=== PATIENT | female | born 1965 | race Caucasian/White ===

== ENCOUNTER → 2021-08-14 17:38 | Outpatient (CLI) | payer BC, SELFPAY ==
--- NOTE | ~2021-08-14 | DEXA_ITS ---
Bone Density Report Name: Carmen Kiser Age: 56 Sex: Female Ethnicity: White Date of : 1965 Indication: postmenopausal; screening for osteoporosis; prior fracture; Referring Provider: [place], DARRICK Kaufman Study: Bone densitometry was performed. Exam Date: August 14, 2021 Accession number: [id number] Bone Density: Region BMD T-score Z-score Classification AP Spine (L1-L4) 1.008 -0.4 0.7 Normal Femoral Neck (Left) 0.583 -2.4 -1.3 Osteopenia Total Hip (Left) 0.688 -2.1 -1.4 Osteopenia Femoral Neck (Right) 0.666 -1.6 -0.6 Osteopenia Total Hip (Right) 0.729 -1.7 -1.1 Osteopenia Total Hip Mean 0.709 -1.9 -1.3 Osteopenia World Health Organization criteria for BMD impression classify patients as: Normal (T-score at or above -1.0), Osteopenia (T-score between -1.0 and -2.5), or Osteoporosis (T-score at or below -2.5). 10-year Fracture Risk(1): Major Osteoporotic Fracture 14% Hip Fracture 2.7% Reported Risk Factors: [place] (), Neck BMD=0.583, BMI=20.9, previous fracture (1) FRAX(R) Version 3.08. Fracture probability calculated for an untreated patient. Fracture probability may be lower if the patient has received treatment. Clinical Information Provided by Patient: Has had a low trauma fracture Patient maximum height was 68 Menopause Age: 44 No regular weight bearing exercise Drinks caffeinated beverages Onset of menses at age 15 Number of children 3 Impression: The patient has low bone mass, based on the Left Femoral Neck T-score. The patient has an estimated ten-year risk of hip fracture of 2.7% and an estimated ten-year risk of major fracture of 14%, based on the WHO FRAX algorithm. The patient has risk factors, including: previous fracture. Discussion: BONE DENSITY IS LOW AT ONE OR MORE SKELETAL SITES. This patient's lowest T-score is low at one or more skeletal sites. It meets the World Health Organization's (WHO) criteria for ?low bone mass? (T-score between -1.0 and -2.5). The patient's 10-year risk of fracture as calculated by FRAX is less than the threshold where pharmacological therapy is recommended by the National Osteoporosis Foundation (NOF). However, all treatment decisions require clinical judgment and consideration of individual patient factors, including patient preferences, comorbidities, previous drug use, risk factors not captured in the FRAX model (e.g., frailty, falls, vitamin D deficiency, increased bone turnover, interval significant decline in bone density) and possible under or overestimation of fracture risk by FRAX. The patient should follow a healthful lifestyle (good nutrition with adequate calcium and vitamin D, and appropriate weight-bearing exercise). Follow-Up: Consider repeating this study in 2 to 3 years to reassess this patient's status, or pawel
--- NOTE | ~2021-08-14 | MM_ITS ---
EXAMINATION: MM screening cindy BI w osito HISTORY: Screening mammogram TECHNIQUE: Craniocaudal and mediolateral oblique 3-D tomosynthesis images were obtained and synthetic 2-D images were generated. CAD analysis was submitted and interpreted. COMPARISON: 12/28/2018, 12/15/2017, 01/02/2016 bilateral screening mammogram examinations BREAST PARENCHYMAL COMPOSITION: There are scattered areas of fibroglandular density. FINDINGS: There is no evidence of suspicious mass, calcification, or architectural distortion to sugg est malignancy in either breast. There has been no suspicious interval change. IMPRESSION: 1. No mammographic evidence of malignancy. 2. Recommend routine screening mammography in one year. BI-RADS Category 1: Negative Reviewed, dictated and finalized at location A.
== END ==
PROVIDERS: PCP Internal Medicine; Visit Provider Internal Medicine
DX: Z12.31 Encounter for screening mammogram for malignant neoplasm of breast (principal); Z78.0 Asymptomatic menopausal state; M85.852 Other specified disorders of bone density and structure, left thigh; M85.851 Other specified disorders of bone density and structure, right thigh
CPT/HCPCS: 77063; 77067; 77080

== ENCOUNTER 2023-12-30 09:59 | Outpatient (CLI) | payer BC, SELFPAY ==
--- NOTE | ~2023-12-30 | MM_ITS ---
EXAMINATION: MM screening cindy BI w osito HISTORY: Screening mammogram TECHNIQUE: Craniocaudal and mediolateral oblique 3-D tomosynthesis images were obtained and synthetic 2-D images were generated. CAD analysis was submitted and interpreted. COMPARISON: 08/14/2021, 12/28/2018, 12/07/2017 bilateral screening mammogram examinations BREAST PARENCHYMAL COMPOSITION: There are scattered areas of fibroglandular density. FINDINGS: There is no evidence of suspicious mass, calcification, or architectural distortion to sugg est malignancy in either breast. There has been no suspicious interval change. IMPRESSION: 1. No mammographic evidence of malignancy. 2. Recommend routine screening mammography in one year. BI-RADS Category 1: Negative Reviewed, dictated and finalized at location A.
== END 2023-12-30 10:00 ==
PROVIDERS: PCP Nurse Practitioner Family; Visit Provider Nurse Practitioner Family
DX: Z12.31 Encounter for screening mammogram for malignant neoplasm of breast (principal)
CPT/HCPCS: 77063; 77067

== ENCOUNTER 2025-07-31 18:55 | Emergency (ER) | payer BC, SELFPAY ==
[2025-07-31 19:06] VITALS: BP 159/82; PULSE 84; RESP 20; TEMP 36.4; O2SAT 99
--- OUTSIDE RECORDS SUMMARY | 2025-07-31 20:34 | XMS_ITS | Data Portability ---
Author Organization [place] [facility], Main Office Address [address] [place] [address] Care Team Providers Care Sprinkling System Irrigator Name Role Phone PAUL PEREZ Primary Care Provider [phone] Assessment Encounter Date Assessment Date Assessment LastModified by Organization Details LastModified Time 12/17/2022 12/17/2022 Cscope- hx polyps/family hx ca- ordered- Sev[place] WWE- referred to [facility]- ordered DEXA- 07/2021- osteopenia Call office if worse, ER if life-threatening illness RTC in 1 year and p.r.n. (unless we start cholesterol med, then will see in 6 months) She voices understanding of plan and agrees [email or web address] Not available 12/17/2022 10:53:40 Plan of Treatment Reminders Order Date Submit Date Provider Last Modified By Organization Details Last Modified Time Details Appointments None recorded. Lab vitamin D, 25-hydroxy, total, serum 2022 023 SHAHEEN Sorensen, [address], [address], [place], [address], 3 12:42:42 HbA1c (hemoglobin A1c), blood 2022 023 SHAHEEN Sorensen, [address], [address], [place], [address], 3 12:42:42 lipid panel, serum 2022 023 SHAHEEN Sorensen, [address], [address], [place], [address], 3 12:42:42 lipoprotein (A), serum - test code [id number] [address], [address]22 [address], [address], [place], [address], 3 10:26:39 apolipoprot ein B (apo B), serum [address], 2022 [address], [address], [place], [address], 3 10:26:39 TSH, serum, reflex free T4 2022 023 [facility], [address], [address], [place], [address], 3 12:42:42 CBC w/ auto diff 2022 023 [facility], [address], [address], [place], [address], 3 12:42:42 CMP, serum or plasma 2022 023 [facility], [address], [address], [place], [address], 3 12:42:42 Referral gynecologis t referral - needs WWE 2022 023 [email or web address] Irma Jarvis, [address], [address], [place], [address], Ph 251 [id number] 4 13:04:57 Procedures colonoscopy screening (PROC) - family hx colon ca; personal hx polyps 2022 023 [email or web address] 3 Quinton Sevilla MD, [address], [address], [place], [address], 3 10:25:48 Surgeries None recorded. Imaging MAMMO, screening, bilateral 2022 023 [facility], [address], [address], [place], [address], 4 13:04:46 Medication Orders None recorded. Patient TargetsNo targets recorded. Patient Instructions Encounter Date Encounter Id Patient Instructions Last Modified By Organization Details Last Modified Time 12/17/2022 [id number] risk assessment* [email or web address] Not availabl e 12/17/2022 10:55:14 INFLUENZA VACCIN E Patient will get at local pharmacy/health department TD/TDAP Patient will get at local pharmacy/health department PNEUMONIA VACCINE Recommended at age 66 SHINGLES Patient will get at local pharmacy/health department MAMMOGRAM: Last Mammogram _ Ordered DEXA SCAN No screening necessary patient is up to date CERVICAL SCREENING/PELVIC EXAMINATION Ordered COLORECTAL SCREENING: Last Colonoscopy Ordered DEPRESSION SCREENING Negative BMI Appropriate NUTRITION Continue healthy eating & exercise PHYSICAL ACTIVITY Need more exercise/physical activity minimum of 30-40 minutes of activity that causes mild breathlessness/day VISION Recommended today ALCOHOL USE No alcohol use TOBACCO USE non smoker LUNG CANCER SCREENING Non Smoker-not indicated SEXUALLY ACTIVE Yes, Patient is in monogamous relationship HEPATITIS C SCREENING Not indicated GLUCOSE SCREENING Ordered LIPID SCREENING Diagnosis of Hyperlipidemia [email or web address] Not available 12/17/2022 10:56:35 Reason for Referral Manager Site Referral for Re ferral needed needs WWE Referring Physician: Zandra Harris, Internal Medicine, Encounter Date: 12/17/2022 Results Created Date Observation Date Name Description Value Unit Range Abnormal Flag Note LastModifiedBy Organization Detail LastModifiedTime 09/19/20 21 09/19/2021 SARS- COV-2 RNA(C OVID1 9),RT -PCR sars-cov-2 RNA(covid19) ,RT-PCR negati ve This test has been autho rized by the FDA under an Emerg ency Use Autho rizat ion (EUA) for use by autho rized labor atori es. Negat marcos resul ts do not precl ude SARS- CoV-2 and shoul d not be used as the sole basis for treat ment or other patie nt manag ement decis ions. Test resul ts shoul d be corre lated with the clini belen histo ry, epide miolo gical data, and other data avail able to the clini tatyana evalu ating the patie nt. Casper gibbs the Fact Sheet s for healt h care provi ders and patie nts at the [facility] lorri: https ://ww w.NXVISION .gov/ media /1363 12/do wnloa d https ://ww w.fda .gov/ media /1363 13/do wnloa d https ://ww [employer] Media.fda .gov/ media /1421 92/do wnloa d https ://ww [employer].fda .gov/ media /1421 91/do wnloa d Antono ayad y: Real- Time RT-PC R Not Available [facility] ([facility]) [address] [place], [address], 09/19/2021 13:25:29 08/15/20 21 08/14/2021 MAMMO , scree noemy, digit al, bilat eral No observ ation record ed. [id number] [facility] [address], [place], [address], 12/16/2022 06:02:08 08/19/20 21 07/19/2021 bone densi ty No observ ation record ed. [id number] [facility] [address], [place], [address], 12/16/2022 06:02:08 12/30/19 24 12/30/2023 MAMMO , scree noemy, digit al, bilat eral No observ ation record ed. [email or web address] [facility] [address], [place], [address], 01/27/2024 13:47:28 12/30/19 24 12/30/2023 MAMMO , scree noemy, digit al, bilat eral No observ ation record ed. [email or web address] [facility] [address], [place], [address], 01/27/2024 13:47:42 Result Notes None recorded. Problems Name Problem SNOMED Code Status Onset Date Resolution Date Notes Provider Name and Address Organization Details Recorded Time Enlarged uterus 730987564 Completed Not Available [facility] 3 05:57:04 Headache 42607925 Active Not Available [facility] 3 05:57:04 Irregular intermenst rual bleeding 19513255 Completed Not Available [facility] 3 05:57:04 Hyperlipid emia 90220844 Active 2017 Not Available [facility] 3 05:57:04 Osteopenia 902219137 Active 2020 Not Available [facility] 3 05:57:04 Vitamin D deficiency 53754340 Active 2022 Charley Lara, DIONNA grajeda, [place] [facility] 3 15:55:54 Problem Notes None recorded. Procedures Surgical History Date Name Laterality Status Provider Name and Address Organization Details Recorded Time Ablation completed Not Available [facility] 05:52:58 Imaging Results None recorded. Procedure Notes None recorded. Medical Equipment None Reported. Allergies No known drug allergies Medications Name Sig Start Date Stop Date Status Note LastModified by Organization Details LastModified Time amoxicillin 500 mg capsule Take 1 capsule every 8 hours by oral route. 12/17 completed Not Available Not Available Not Available silver sulfadiazin e 1 % topical cream 12/17 completed Not Available Not Available Not Available azithromyci n 250 mg tablet TAKE 2 TABLETS (500 MG) BY ORAL ROUTE ONCE DAILY FOR 1 DAY THEN 1 TABLET (250 MG) BY ORAL ROUTE ONCE DAILY FOR 4 DAYS active Not Available Not Available No t Available hydrocodone 5 mg-acetamin ophen 325 mg tablet active Not Available Not Available No t Available tramadol 50 mg tablet Take 1 tablet every 6 hours by oral route. active Not Available Not Available No t Available etodolac 400 mg tablet active Not Available Not Available Not Available hydrocodone 5 mg-acetamin ophen 500 mg tablet active Not Available Not Available No t Available ergocalcife rol (vitamin D2) 1,250 mcg (50,000 unit) capsule Take 1 capsule every week by oral route. active Not Available Not Available No t Available methylpredn isolone 4 mg tablets in a dose pack as directed active Not Available Not Available No t Available fluticasone propionate 50 mcg/actuati on nasal spray,suspe nsion [place] 2 sprays every day by intranasa l route in the evening. 12/17 completed Not Available Not Available Not Available rosuvastati n 5 mg tablet Take 1 tablet every day by oral route. active Not Available Not Available No t Available Claritin 2017 active Not Available Not Available Not Avai lable Afluria Quad 4427-0136 (PF) 60 mcg (15 mcg x 4)/0.5 mL IM syringe ADM 0.5ML IM UTD 06/27 completed Not Available Not Available Not Available Afluria Qd 2018- (36 mos up)(PF)60 mcg (15 mcg x4)/0.5 mL IM syringe ADM 0.5ML IM UTD 12/17 completed Not Available Not Available Not Available Vitals Date Recorded Body weight Body mass index (BMI) Body height Body temperature Heart rate Oxygen saturation Oxygen saturation in Arterial blood by Pulse oximetry Systolic And Diastolic Provider Name and Address Organization Details Last Updated DateTime 3 11946.8 6 g 22.8 kg/m2 172.72 cm 97.4 [degF] 96 /min 98 % 98 % 132/78 mm[Hg] Charley Lara, [facility] 3 10:16:54 Date Recorded Body mass index (BMI) Body height Oxygen saturation Oxygen saturation in Arterial blood by Pulse oximetry Heart rate Body temperature Body weight Systolic And Diastolic Provider Name and Address Organization Details Last Updated DateTime 1 21 kg/m2 172.72 cm 99 % 99 % 71 /min 98.2 [degF] 18549.7 5 g 134/88 mm[Hg] Not Available [facility] 3 05:54:59 Social History Question Answer Notes LastModified by Organizat ion Details LastModified Time Tobacco Smoking Status Never Smoker GALILEA Hess, [facility] 12/17/2022 10:08:35 Do You Have An Advance Directive? Yes [id number] Information not available 12/16/2022 What Is Your Level Of Caffeine Consumption? Occasional [id number] Information not available 12/16/2022 How Much Tobacco Do You Chew? None [id number] Information not available 12/16/2022 What Type Of Diet Are You Following? REGULAR [id number] Information not available 12/16/2022 Which Illicit Or Recreational Drugs Have You Used? None [email or web address] Information not available 12/17/2022 What Is The Highest Grade Or Level Of School You Have Completed Or The Highest Degree You Have Received? [id number] Information not available 12/17/2022 Have There Been Any Changes To Your Family Or Social Situation? No Information not available 12/17/2022 What Is The Fluoride Status Of Your Home? Unknown Information not available 12/17/2022 Are There Any Guns Present In Your Home? Yes Information not available 12/17/2022 Do You Use Insect Repellent Routinely? No Information not available 12/17/2022 Where Do You Live? SingleLevelHouse Information not available 12/17/2022 What Was The Date Of Your Most Recent Tobacco Screening? 12/17/2022 Information not available 12/17/2022 Do You Have Any Pets? Yes Information not available 12/17/2022 What Is Your Relationship Status? Information not available 12/17/2022 Do You Use Your Seat Belt Or Car Seat Routinely? Yes Information not available 12/17/2022 Do You Have Smoke And Carbon Monoxide Detectors In Your Home? Yes Information not available 12/17/2022 Are You Passively Exposed To Smoke? No Information not available 12/17/2022 Are There Any Smokers In Your House? No Information not available 12/17/2022 Do You Use Sunscreen Routinely? Yes [email or web address] Information not available 12/17/2022 Do You Have Any Dietary Restrictions? No Information not available 12/17/2022 Sex: Female Functional Status Question Answer Note LastModified by Organizat ion Details LastModified Time Do you use any illicit or recreational drugs? No Information not available 12/17/2022 Do you or have you ever used any other forms of tobacco or nicotine? No Information not available 12/17/2022 What is your level of alcohol consumption? Occasional [id number] Information not available 12/16/2022 Are you currently employed? 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 Occasional [id number] Information not available 12/16/2022 Mental Status Question Answer Note LastModified by Organization D etails LastModified Time Do you feel stressed (tense, restless, nervous, or anxious, or unable to sleep at night)? [id number] Information not available 12/17/2022 Family History Relationship Description Onset Age of this Age Resolved Age Notes LastModified by Organization Details LastModified Time Paternal Grandmother Heart disease [id number] Not available 12/16/2022 05:52:59 Maternal Grandmother Diabetes mellitus [id number] Not available 12/16/2022 05:52:59 Maternal Grandmother Malignant neoplastic disease [email or web address] Not available 11/2022 10:08:35 Maternal Grandfather Malignant neoplastic disease [email or web address] Not available 11/2022 10:08:35 Paternal Grandfather Malignant neoplastic disease [email or web address] Not available 11/2022 10:08:35 Paternal Grandfather Depressive disorder [id number] Not available 12/16/2022 05:53:00 Medical History No medical history recorded. Gynecological HistoryNo gynecological history recorded. Obstetrics History GPAL:G 0 P 0 0 0 0 Immunizations Vaccine Type Date Status Note Provider Nam e and Address Organization Details Recorded Time Influenza, split virus, quadrivalent, preservative 9 completed Not Available [facility] 12/16/2022 06:01:49 influenza, unspecified formulation 8 completed Not Available [facility] 12/16/2022 06:01:49 Influenza, high-dose, trivalent, PF 4 completed Not Available [facility] 12/16/2022 06:01:49 Influenza, high-dose, trivalent, PF 4 completed Not Available [facility] 12/16/2022 06:01:49 Influenza, split virus, trivalent, preservative 3 completed Not Available [facility] 12/16/2022 06:01:49 Influenza, split virus, quadrivalent, preservative 6 completed Not Available [facility] 12/16/2022 06:01:49 Influenza, split virus, trivalent, preservative 3 completed Not Available [facility] 12/16/2022 06:01:49 Past Encounters Encounter ID Performer Location Encounter Start Date Encounter Closed Date Diagnosis/Indication Diagnosis SNOMED-CT Code Diagnosis ICD10 Code Diagnosis IMO Codes Diagnosis Note [id number] Terry Holm MD [facility] Internal Med [facility] [address] [facility] [place] [address] 2021 00:00:00 2021 16:12:55 [id number] JANAY Jensen [facility] Internal Med [facility] [address] [facility] [address] [place] [address] 12/17/2022 10:06:00 12/17/2022 11:00:38 Adult health examination 078517189 Z00.00 Hyperlipidemia 15229052 E78.5 not currently on medgiven her history of having high cholestero l back in her 20s, I suspect she may have elevated Lp(a)we discussed if she does have elevated Lp(a) or elevated ApoB, it would be my strong recommenda tion to begin statin therapy to reduce her risk of heart attack and stroke Osteopenia 503580039 M85 .80 Recommend she get an OTC calcium and vitamin-D supplement Weightbear ing exercise recommende d 2-3 times per week for bone health Diabetes m ellitus screening 854180056 Z13.1 Screening mammography 24 134674 Z12.31 Referral needed 78582147 9 Z76.89 Screening for malignant neoplasm of colon 199874864 Z12.11 Depression screening 171 362664 Z13.31 Normal bod y mass index 04990115 Z68.22 recommend healthy, well balanced mealsfocus on lean meats, fresh vegetables , fresh fruits, whole grainsredu ce fast/proce ssed foods or eating out to no more than 1-2 times per weekaim to get 30 min of exercise most days of the week- walking is a great choicealso recommend resistance training 2-3 times per week Family his tory of breast cancer 035422940 Z80.3 Family his tory of cancer of colon 960787405 Z80.0 Health Concerns Section Related Observation LastModified by Organization Detai ls LastModified Time None Recorded Concern Status LastModified by Organization Details LastModified Time None Recorded Advance Directives Directive Y: Payers Insurance Date Sequence Insurance Name Policy Number Policy Murphy Covered Member ID Murphy Member ID Guarantor Name 08/24/2024 1 [employer] [id number] Carmen Kiser [id number] Carmen Kiser 12/20/2023 2 [employer] [id number] Gume Kiser [id number] Carmen Kiser 08/24/2024 [facility] Carmen Kiser SELF SELF Carmen Kiser Notes Date Note Type Note Provider Name and Address Organization Details Recorded Time 12/17/2022 text/html Carmen presents today to establish care. She is also due for physical. [facility] , works as a manager investment banking Past hx:HLDosteopeniahx uterine ablationfamily hx colon ca (both grandfathers)family hx breast ca (grandmother) She overall feels well today and denies any new complaints. We discussed her osteopenia. She tells me she was not aware that she had osteopenia. She is currently not taking any calcium or vitamin-D supplement. She is currently not getting any weight-bearing exercise. We also discussed her cholesterol. She is currently not on any medications. Last LDL was 181. She reports she has had high cholesterol long as she can remember, as early as her 20s. She does not think she has ever been checked for lipoprotein (a) or ApoB. She does have family history of colon cancer. Her last colonoscopy was in 2019 and she did have a 9 mm sessile polyp. She was supposed to repeat this in 3 years. She is overdue. Last mammogram was in July of 2021. She is also overdue for this. She also reports has been a few years since she has been to the [facility]. She is overdue for well-woman exam. She is due for screening labs. Zandra Harris, GIOVANNY-C [address] [facility], [facility] [address], [place], [address], [place] [facility] [email or web address] 12/17/2022 10:56:50 OBGyn Episode No OBEpisode recorded.
--- NOTE | 2025-07-31 20:57 | ED_ITS ---
HPI - Skin/Abscess/Foreign Bdy General Chief complaint: Skin/Abscess/Foreign Body Stated complaint: abscess right on my bottom Time Seen by Provider: 07/31/25 20:10 History of Present Illness HPI narrative: Patient is a 60-year-old female who presents to the ER with a red lump on her inner buttocks. She reports she 1st noticed in yesterday. Patient reports she went to urgent care earlier today who advised her to come to the ER for further evaluation and treatment. She denies any pain with bowel movements, rectal pain, constipation, or diarrhea. Patient reports she has had 1 of these in the past but it went away on its own. She denies any other medical history relevant to this ER visit. Related Data Allergies Allergy/AdvReac Type Severity Reaction Status Date / Time No Known Allergies Allergy Unverified 01/31/19 17:21 Review of Systems Review of Systems: All systems reviewed & are unremarkable except as noted in HPI and below Exam Narrative: GENERAL: Well appearing, well-nourished, non-toxic, in no acute distress. HEAD: Normocephalic, atraumatic. NECK: Supple. No adenopathy, no masses. RESPIRATORY: Airway patent, respirations nonlabored. Clear to auscultation bilaterally, no rales, rhonchi, wheezing. CARDIOVASCULAR: Regular rate and rhythm without murmurs, rubs, or gallops. Peripheral pulses 2+ and equal bilaterally. ABDOMINAL: Soft, nontender, nondistended, no hepatosplenomegaly. Normoactive BS. MUSCULOSKELETAL: Moves all extremities. Strength/ROM intact without gross deformities. SKIN: Warm, dry, normal color. No rashes. Palpable red, warm, with area of induration, approximately quarter-size with palpation, 5 o'clock position from rectum, approximately 1 1/2 inches away from rectum- does not track towards rectum NEURO: A&O X3. Speech clear. Cranial nerves II-XII intact. No ataxic movements. PSYCHIATRIC: Appropriate mood and affect. Normal interaction. Course Vital Signs Vital signs: Vital Signs Temperature 36.4 C 07/31/25 19:06 Pulse Rate 84 07/31/25 19:06 Respiratory Rate 20 07/31/25 19:06 Blood Pressure 159/82 H 07/31/25 19:06 Pulse Oximetry 99 07/31/25 19:06 Oxygen Delivery Room Air 07/31/25 19:06 Temperature 36.4 C 07/31/25 19:06 Pulse Rate 84 07/31/25 19:06 Respiratory Rate 20 07/31/25 19:06 Blood Pressure 159/82 H 07/31/25 19:06 Pulse Oximetry 99 07/31/25 19:06 Oxygen Delivery Room Air 07/31/25 19:06 Procedures Abscess I/D lalo-rectal: Date of Incision: 07/31/25 Time of Incision: 22:09 Side (if applicable): right Local Anesthetic: lidocaine 1% and with epi Amount of anesthesia used (mL): 6 Technique: incised with #11 blade and probed loculations Amount of fluid expressed (mL): 3 Irrigation: Yes Packing used?: none I&D Results: Pus and Blood MDM - Skin/Abscess/Foreign Bdy MDM Narrative Medical decision making narrative: Patient is a 60-year-old female who presents to the ER with a red lump on her inner buttocks. She reports she 1st noticed in yesterday. Patient reports she went to urgent care earlier today who advised her to come to the ER for further evaluation and treatment. She denies any pain with bowel movements, rectal pain, constipation, or diarrhea. Patient reports she has had 1 of these in the past but it went away on its own. She denies any other medical history relevant to this ER visit. Labs Ordered: aerobic/anaerobic Imaging Ordered: None necessary Medications Ordered: Bactrim PO, [place] with epi, [place] PO Diagnosis: abscess Consults: General surgery (as needed) Patient Education/Shared MDM: Results of examination shared with patient. Patient strongly advised to follow-up with her PCP in the next 2-3 days to ensure wound healing. She will be discharged home with a prescription for Bactrim. Strict return precautions provided. Patient verbalized understanding and is in agreement with plan. Vital signs stable at time of discharge. All questions answered. Differential Diagnosis Differential diagnosis: Likely abscess of skin or subcutaneous tissue, cellulitis and contact dermatitis Discharge Plan Discharge Clinical Impression: Abscess of skin or subcutaneous tissue Patient Disposition: Home Condition: Stable Instructions: Antibiotic Form, Abscess (ED) Additional Instructions: Please return to the ER with any worsening symptoms, including fevers, increasing pain, increasing redness to the site rectal pain. Follow-up with primary care provider in the next 2-3 days to ensure you are healing. Take all medications as prescribed, including regularly scheduled medications. Complete your full dose of antibiotics. You may take Tylenol and/or ibuprofen for pain control. Please do not soak in any water, but allow soap and water to run over the site in the shower. Patient Language: [place] Prescriptions: New sulfamethoxazole-trimethoprim [Bactrim DS] 800-160 mg tablet 1 tablet PO Q12H 7 Days Qty: 14 0RF Follow-up/Referrals: Yolanda,Lenore Truong APRN [Primary Care Provider, Unknown] Stand Alone Forms: Work/School Release IP Time of Disposition: 22:19
[2025-07-31] MEDS: HYDROcodone/acetaminophen (*CRX) 5-325 MG TABLET 1 TAB PO (22:23)
[2025-07-31] MEDS: SULFAMETHOXAZOLE/TRIMETHOPRIM 800/160 MG DS TABLET 2 TAB PO (22:23)
[2025-07-31 22:31] VITALS: BP 133/71; PULSE 76; RESP 18; O2SAT 100
== END 2025-07-31 22:32 | disposition home or self-care (01) ==
PROVIDERS: Emergency Provider Registered Nurse; PCP Nurse Practitioner
DX: L02.31 Cutaneous abscess of buttock (principal)
CPT/HCPCS: 10060; 99283; A9270